=== PATIENT | male | born 1930 | race Two or more races ===

== ENCOUNTER 2018-11-08 16:53 | Observation (INO) | payer MEDICARE, MEDICAID ==
[2018-11-08] MEDS ORDERED: NORMAL SALINE 1000 ML 1,000 ML IV PRN (18:05)
--- NOTE | 2018-11-08 22:06 | PDOC H&P ---
History of Present Illness Admission Date/PCP: 11/08/18 16:53 BOBBY CANTU MD History of Present Illness: REYNOLD FERRO is a 88 year old male, He came to the office today with his family, he has underlining schizophrenia difficult to understand, patient has daughter stated that he has become more agitated recently or sometimes frankly violent. I felt patient should be admitted for observation and evaluation to rule out any metabolic cause for the change in his behavior. He was initially hesitant about this plan of action but ultimately he was agreeable to the plan so he was admitted directly from the office into the hospital for evaluation. When he arrived in the hospital for evaluation he was very uncooperative, he refused to have his blood drawn, he refused to stay in his room, he was panting back and forth in the hospital hallway. The nursing staff have no choice but to call security staff. When I arrived on the floor to talk to him for him to cooperate with the nursing staff so that we can evaluate him, he continues to refuse, He ultimately decided to sign again medical advice Past Medical History Cardiac Medical History: Reports: Hypertension Psychiatric Medical History: Reports: Dementia, Schizoaffective Disorder Social History Smoking Status: Never Smoker Frequency of Alcohol Use: None Hx Recreational Drug Use: No Hx Prescription Drug Abuse: No Family History Family History: Reviewed & Not Pertinent Parental Family History Reviewed: Yes Children Family History Reviewed: Yes Sibling(s) Family History Reviewed.: Yes Medication/Allergy Home Medications: Dutasteride [Avodart Lf 0.5 mg Capsule] 0.5 mg PO DAILY 02/25/14 Folic Acid/Multivit-Min/Lutein [Centrum Silver Chewable Tablet] 1 each PO DAILY 02/25/14 Metoprolol Succinate 50 mg PO DAILY 02/25/14 Quetiapine Fumarate [Seroquel 100 mg Tablet] 450 mg PO QHS 02/25/14 Tamsulosin HCl [Flomax 0.4 mg Cap.sr] 0.4 mg PO DAILY 02/25/14 Atorvastatin Calcium [Lipitor 20 mg Tablet] 20 mg PO QHS 10/05/15 Donepezil HCl [Aricept] 10 mg PO DAILY 10/05/15 Iron Polysaccharide Complex [Ferrex 150] 150 mg PO DAILY 10/05/15 Mometasone Furoate [Nasonex] 2 spray NS DAILY 10/05/15 Risperidone 2 mg PO BID 10/05/15 Allergies/Adverse Reactions: No Known Allergies Allergy (Unverified 02/25/14 09:44) Review of Systems Constitutional: ABSENT: chills, fever(s), headache(s), weight gain, weight loss Eyes: ABSENT: visual disturbances Ears: ABSENT: hearing changes Cardiovascular: ABSENT: chest pain, dyspnea on exertion, edema, orthropnea, palpitations Respiratory: ABSENT: cough, hemoptysis Gastrointestinal: ABSENT: abdominal pain, constipation, diarrhea, hematemesis, hematochezia, nausea, vomiting Genitourinary: ABSENT: dysuria, hematuria Musculoskeletal: ABSENT: joint swelling Integumentary: ABSENT: rash, wounds Neurological: ABSENT: as per HPI, abnormal gait, abnormal movements, abnormal speech, confusion, convulsions, dizziness, focal weakness, frequent falls, lack of coordination, memory loss, numbness, paresthesias, restless legs, syncope, tingling, tremor(s), vertigo, weakness, other Psychiatric: ABSENT: anxiety, depression, homidical ideation, suicidal ideation Endocrine: ABSENT: cold intolerance, heat intolerance, menstrual abnormalities, polydipsia, polyuria Hematologic/Lymphatic: ABSENT: easy bleeding, easy bruising, lymphadenopathy Physical Exam General appearance: PRESENT: no acute distress, well-developed, well-nourished Head exam: PRESENT: atraumatic, normocephalic Eye exam: PRESENT: conjunctiva pink, EOMI, PERRLA Ear exam: PRESENT: normal external ear exam Mouth exam: PRESENT: moist, tongue midline Neck exam: PRESENT: full ROM Respiratory exam: PRESENT: clear to auscultation dulce Cardiovascular exam: PRESENT: RRR Pulses: PRESENT: normal dorsalis pedis pul, +2 pedal pulses bilateral Vascular exam: PRESENT: normal capillary refill GI/Abdominal exam: PRESENT: normal bowel sounds, soft Rectal exam: PRESENT: deferred Neurological exam: PRESENT: alert, awake, oriented to person, oriented to place, oriented to time, oriented to situation, CN II-XII grossly intact Psychiatric exam: PRESENT: appropriate affect, normal mood Skin exam: PRESENT: dry, intact, warm Assessment & Plan - Diagnosis (1) Schizophrenia Qualifiers: Schizophrenia type: unspecified Qualified Code(s): F20.9 - Schizophrenia, unspecified Is this a current diagnosis for this admission?: Yes Plan: Patient refused to have his blood drawn, virtually impossible to evaluate him, he refused to change to the hospital gown. He left AMA today
--- NOTE | 2018-11-08 23:37 | Left Against Medical Advice ---
Against Medical Advice Admission Date/Time: 11/08/18 16:53 Primary Care Provider: BOBBY CANTU MD Date of Patient Emigration: 11/08/18 - Diagnosis: (1) Schizophrenia Is this a current diagnosis for this admission?: Yes - Summary: Summary: Please see Admission and Progress Notes as well. REYNOLD FERRO is a 88 M, who LEFT AGAINST MEDICAL ADVICE. The Patient was admitted on 11/08/18 16:53. Patient refused to cooperate with us to evaluate him. I explained to his daughter that we cannot force him to have blood drawn since he refused to have anything to do with us and he also left AMA there was nothing I could do to convince him to stay
== END 2018-11-08 18:34 | disposition left against medical advice (07) ==
LOC: 4N 16:53
PROVIDERS: ADMIT Internal Medicine; ATTEND Internal Medicine
DX: F20.9 Schizophrenia, unspecified (principal); F03.90 Unspecified dementia, unspecified severity, without behavioral disturbance, psychotic disturbance, mood disturbance, and anxiety; I10 Essential (primary) hypertension; Z79.899 Other long term (current) drug therapy